=== PATIENT | female | born 1945 | race Caucasian/White ===

== ENCOUNTER 2021-02-23 12:50 | Inpatient (IN) | payer MEDICARE, OTHER ==
[~2021-02-23] VITALS: Ht 152.4 cm; Wt 90.9 kg
[2021-02-23 13:58] LABS: BASOPHILS % (AUTO) 0.3 % (0-1); EOSINOPHILS % (AUTO) 0.3 % (0-6); HEMATOCRIT 41.1 % (35.0-45.0); HEMOGLOBIN 13.7 g/dl (12.0-16.0); LYMPHOCYTES # (AUTO) 0.4 X10'3 (1.1-4.8); LYMPHOCYTES % (AUTO) 8.4 % (21-51); MEAN CORPUSCULAR HEMOGLOBIN 30.3 PG (27.0-31.0); MEAN CORPUSCULAR HGB CONC 33.2 g/dL (33.0-36.5); MEAN CORPUSCULAR VOLUME 91.3 FL (78-98); MEAN PLATELET VOLUME 8.1 FL (7.4-10.4); MONOCYTES # (AUTO) 0.4 X10'3 (0-0.9); MONOCYTES % (AUTO) 6.6 % (2-12); NEUTROPHILS # (AUTO) 4.5 X10'3 (1.8-7.7); NEUTROPHILS % (AUTO) 84.4 % (42-75); PLATELET COUNT 252 X10'3 (140-440); RED BLOOD COUNT 4.51 X10'6 (4.20-5.60); RED CELL DISTRIBUTION WIDTH 13.4 % (11.5-14.5); WHITE BLOOD COUNT 5.3 X10'3 (4.5-11.0)
[2021-02-23 14:10] LABS: CLARITY,URINE SLIGHTLY CLOUDY (Clear); COLOR,URINE YELLOW (Yellow); GLUCOSE, URINE NEGATIVE (Neg); KETONES,URINE 15 mg/dl (Neg); LEUKOCYTE ESTERASE ,URINE NEGATIVE (Neg); NITRITES, URINE NEGATIVE (Neg); OCCULT BLOOD,URINE TRACE-LYSED (Neg); PH,URINE 6.5 (4.8-8.0); PROTEIN,URINE TRACE mg/dl (Neg); UA COLLECTION TYPE CLN CATCH MIDSTREAM; UROBILINOGEN,URINE 0.2 E.U/dL (0.2-1.0)
[2021-02-23 14:14] LABS: ALANINE AMINOTRANSFERASE 21 U/L (12-78); ALBUMIN 2.7 G/DL (3.4-5.0); ALBUMIN/GLOBULIN RATIO 0.7 (1.1-1.5); ALKALINE PHOSPHATASE 128 IU/L (46-116); ANION GAP 9 (8-16); ASPARTATE AMINO TRANSFERASE 60 U/L (10-37); BILIRUBIN,TOTAL 0.5 MG/DL (0.1-1.0); BLOOD UREA NITROGEN 11 MG/DL (7-18); BUN/CREATININE RATIO 12.6 (6.6-38.0); C-REACTIVE PROTEIN 8.99 MG/DL (0.0-0.5); CALCIUM 8.8 MG/DL (8.5-10.1); CHLORIDE 98 MMOL/L (99-107); CREATININE 0.87 MG/DL (0.40-0.90); GLUCOSE 136 MG/DL (70-104); POTASSIUM 3.5 MMOL/L (3.5-5.1); SODIUM 136 MMOL/L (135-145); TOTAL CARBON DIOXIDE 29.1 MMOL/L (24-32); TOTAL PROTEIN 6.8 G/DL (6.4-8.2); eGFR 63 ML/MIN
[2021-02-23 14:36] LABS: BACTERIA,URINE 1+ /HPF (Neg); RBC,URINE 0-2 /HPF (0-2); SQUAMOUS EPITHELIAL CELL,UR MODERATE /LPF (FEW); TRANSITIONAL EPI CELLS,URINE FEW /HPF
[2021-02-23 14:37] LABS: WBC,URINE 0-4 /HPF (0-4)
[2021-02-23] MEDS ORDERED: REMDESIVIR INJ 200 MG in normal saline 100ml IV soln 60 ML IV ONE (15:10)
[2021-02-23] MEDS ORDERED: CLOT15CR73 TP (15:15)
[2021-02-23] MEDS ORDERED: DIPH25CA52 PO (15:15)
[2021-02-23] MEDS ORDERED: METO100T14 PO (15:15)
[2021-02-23] MEDS ORDERED: mag hydrox/Alum hydrox/simeth 30ml oral suspension PO PRN (15:15)
[2021-02-23] MEDS ORDERED: ASPI-611 PO (15:15)
[2021-02-23] MEDS ORDERED: DOCU100C40 PO (15:15)
[2021-02-23] MEDS ORDERED: magnesium hydroxide 30ml (MOM) UD suspension PO PRN (15:15)
[2021-02-23] MEDS ORDERED: acetaminophen 325mg tablet PO PRN (15:15)
[2021-02-23] MEDS ORDERED: AMLO1CAP2 PO (15:15)
[2021-02-23] MEDS ORDERED: INDA1.255 PO (15:15)
[2021-02-23] MEDS ORDERED: HYDR-3972 PO (15:15)
[2021-02-23] MEDS ORDERED: morphine 2 MG/ML inj. syringe IV PRN (15:15)
[2021-02-23] MEDS ORDERED: CHOL500050 PO (15:15)
[2021-02-23] MEDS ORDERED: LEVO75TA7 PO (15:15)
[2021-02-23] MEDS ORDERED: ondansetron/PF 4mg/2ml inj IV PRN (15:15)
[2021-02-23] MEDS ORDERED: POLY119P2 PO (15:18)
[2021-02-23] MEDS ORDERED: GABA300C PO (15:18)
[2021-02-23] MEDS ORDERED: CELE-85 PO (15:18)
[2021-02-23 15:55] LABS: D-DIMER 3.92 MG/L FEU (0-0.50)
[2021-02-23] MEDS ORDERED: HYDROcodone/acetaminophen 5mg/325mg tablet PO PRN (17:35)
[2021-02-23] MEDS: normal saline 1000ml 1,000 ML IV SCH ×2 (18:21→22:51)
[2021-02-23] MEDS ORDERED: dexamethasone inj 6 MG in normal saline 50ml IV soln 50 ML IV SCH (20:00)
[2021-02-23] MEDS: docusate sod 100mg capsule PO SCH ×2 (20:00→21:00)
[2021-02-23] MEDS: enoxaparin 40mg/0.4ml syringe SUBCUT SCH (21:47)
[2021-02-23] MEDS: diphenhydrAMINE 25mg capsule PO SCH (21:48)
[2021-02-23] MEDS: metoprolol tartrate 50mg tablet PO SCH (21:48)
[2021-02-23] MEDS: gabapentin 300mg capsule PO SCH (21:48)
[2021-02-23 22:22] VITALS: BP 141/71
[2021-02-23] MEDS: dexamethasone inj 6 MG in normal saline 50ml IV soln 50 ML IV SCH (22:48)
[2021-02-24 02:00] VITALS: BP 137/77
[2021-02-24 06:00] VITALS: BP 141/78
--- NOTE | 2021-02-24 06:27 | NUR ---
Problems reprioritized. Patient report given, questions answered & plan of care reviewed with Salud ALEJO.
--- NOTE | 2021-02-24 06:50 | NUR ---
Patient in room ORTHO 4022. I have received report from Marcie Rome RN and had the opportunity to ask questions and assume patient care.
[2021-02-24] MEDS ORDERED: HYDROchlorothiazide 25mg tablet PO SCH (08:00)
[2021-02-24] MEDS: docusate sod 100mg capsule PO SCH ×3 (08:00→20:06)
[2021-02-24] MEDS ORDERED: polyethylene glycol 3350 17gm powd pack PO SCH (08:00)
[2021-02-24 08:39] LABS: BASOPHILS % (AUTO) 0.2 % (0-1); EOSINOPHILS % (AUTO) 0 % (0-6); HEMATOCRIT 44.3 % (35.0-45.0); HEMOGLOBIN 14.6 g/dl (12.0-16.0); LYMPHOCYTES # (AUTO) 0.4 X10'3 (1.1-4.8); MEAN CORPUSCULAR HEMOGLOBIN 30.3 PG (27.0-31.0); MEAN CORPUSCULAR HGB CONC 32.9 g/dL (33.0-36.5); MEAN CORPUSCULAR VOLUME 92.1 FL (78-98); MEAN PLATELET VOLUME 8.3 FL (7.4-10.4); MONOCYTES # (AUTO) 0.3 X10'3 (0-0.9); MONOCYTES % (AUTO) 7.8 % (2-12); NEUTROPHILS # (AUTO) 2.6 X10'3 (1.8-7.7); PLATELET COUNT 301 X10'3 (140-440); RED BLOOD COUNT 4.82 X10'6 (4.20-5.60); RED CELL DISTRIBUTION WIDTH 13.5 % (11.5-14.5); WHITE BLOOD COUNT 3.3 X10'3 (4.5-11.0)
[2021-02-24] MEDS: celeCOXIB 100mg capsule PO SCH (08:56)
[2021-02-24] MEDS: aspirin 81mg, enteric-coated 1 TAB TABLET.DR PO SCH (08:57)
[2021-02-24] MEDS: amLODIPine 5mg tablet PO SCH (08:57)
[2021-02-24] MEDS: gabapentin 300mg capsule PO SCH ×2 (08:57→20:08)
[2021-02-24] MEDS: cholecalciferol (vitamin D3) 1,000 unit (25mcg) tablet PO SCH (08:58)
[2021-02-24] MEDS: levoTHYROXINE 75mcg tablet PO SCH (08:58)
[2021-02-24] MEDS: lisinopril 20mg tablet PO SCH (08:59)
[2021-02-24] MEDS: dexamethasone inj 6 MG in normal saline 50ml IV soln 50 ML IV SCH ×2 (09:01→20:09)
[2021-02-24 09:04] LABS: ALBUMIN 2.8 G/DL (3.4-5.0); ANION GAP 14 (8-16); BLOOD UREA NITROGEN 9 MG/DL (7-18); BUN/CREATININE RATIO 11.7 (6.6-38.0); CALCIUM 8.4 MG/DL (8.5-10.1); CHLORIDE 99 MMOL/L (99-107); CREATININE 0.77 MG/DL (0.40-0.90); GLUCOSE 163 MG/DL (70-104); POTASSIUM 3.2 MMOL/L (3.5-5.1); SODIUM 140 MMOL/L (135-145); TOTAL CARBON DIOXIDE 27.3 MMOL/L (24-32); eGFR 73 ML/MIN
[2021-02-24] MEDS: metoprolol tartrate 50mg tablet PO SCH ×2 (09:06→20:07)
[2021-02-24] MEDS: enoxaparin 40mg/0.4ml syringe SUBCUT SCH ×2 (09:07→20:08)
[2021-02-24] MEDS: clotrimazole/betamethasone diproprion. cream 15gm TP SCH (09:09)
[2021-02-24] MEDS: REMDESIVIR INJ 100 MG in normal saline 100ml IV soln 80 ML IV SCH (09:53)
[2021-02-24 10:00] VITALS: BP 135/78
[2021-02-24] MEDS ORDERED: iohexol 350MG/ML 100ml bottle IV ONE (11:13)
--- NOTE | 2021-02-24 14:47 | NUR ---
Phone call with pharmacist re: "severe reaction between Benadryl and Potassium" when entering K+/Mg++ replacement protocol. OK [facility] Will continue to monitor
[2021-02-24] MEDS ORDERED: magnesium Cl slow-release 64mg tablet PO PRN (14:50)
[2021-02-24] MEDS ORDERED: potassium Cl 40MEQ/1/2NS 520ml 520 ML IV PRN (14:50)
[2021-02-24] MEDS ORDERED: magnesium 4gm in 100ml NS 100 ML IV PRN (14:50)
[2021-02-24] MEDS ORDERED: potassium Cl 20 mEq SR tablet PO PRN (14:50)
[2021-02-24] MEDS: potassium Cl 20 mEq SR tablet PO PRN ×2 (15:15→20:08)
--- NOTE | 2021-02-24 18:38 | NUR ---
Problems reprioritized. Patient report given, questions answered & plan of care reviewed with Marcie Rome RN.
[2021-02-24] MEDS: K and/or MAG REPLACEMENT MC SCH (20:04)
[2021-02-24] MEDS: polyethylene glycol 3350 17gm powd pack PO SCH (20:09)
[2021-02-24] MEDS: diphenhydrAMINE 25mg capsule PO SCH (20:12)
[2021-02-24 22:00] VITALS: BP 140/76
[2021-02-25 02:00] VITALS: BP 133/67
--- NOTE | 2021-02-25 06:23 | NUR ---
Problems reprioritized. Patient report given, questions answered & plan of care reviewed with Clarissa ALEJO.
[2021-02-25 06:51] VITALS: BP 147/88
[2021-02-25] MEDS: REMDESIVIR INJ 100 MG in normal saline 100ml IV soln 80 ML IV SCH (07:31)
[2021-02-25] MEDS: lisinopril 20mg tablet PO SCH (07:32)
[2021-02-25] MEDS: enoxaparin 40mg/0.4ml syringe SUBCUT SCH (07:32)
[2021-02-25] MEDS: dexamethasone inj 6 MG in normal saline 50ml IV soln 50 ML IV SCH ×2 (07:32→20:47)
[2021-02-25] MEDS: aspirin 81mg, enteric-coated 1 TAB TABLET.DR PO SCH (07:33)
[2021-02-25] MEDS: metoprolol tartrate 50mg tablet PO SCH ×2 (07:33→20:28)
[2021-02-25] MEDS: levoTHYROXINE 75mcg tablet PO SCH (07:33)
[2021-02-25] MEDS: gabapentin 300mg capsule PO SCH ×2 (07:33→20:28)
[2021-02-25] MEDS: cholecalciferol (vitamin D3) 1,000 unit (25mcg) tablet PO SCH (07:33)
[2021-02-25] MEDS: amLODIPine 5mg tablet PO SCH (07:33)
[2021-02-25] MEDS: celeCOXIB 100mg capsule PO SCH (07:33)
[2021-02-25] MEDS: K and/or MAG REPLACEMENT MC SCH ×2 (08:00→20:19)
[2021-02-25] MEDS: clotrimazole/betamethasone diproprion. cream 15gm TP SCH (08:06)
[2021-02-25 08:57] LABS: BASOPHILS % (AUTO) 0 % (0-1); EOSINOPHILS % (AUTO) 0 % (0-6); HEMATOCRIT 40.7 % (35.0-45.0); LYMPHOCYTES # (AUTO) 0.8 X10'3 (1.1-4.8); LYMPHOCYTES % (AUTO) 9.4 % (21-51); MEAN CORPUSCULAR HEMOGLOBIN 30.8 PG (27.0-31.0); MEAN CORPUSCULAR HGB CONC 34.4 g/dL (33.0-36.5); MEAN CORPUSCULAR VOLUME 89.5 FL (78-98); MEAN PLATELET VOLUME 8.2 FL (7.4-10.4); MONOCYTES # (AUTO) 0.7 X10'3 (0-0.9); MONOCYTES % (AUTO) 8.3 % (2-12); NEUTROPHILS # (AUTO) 6.7 X10'3 (1.8-7.7); NEUTROPHILS % (AUTO) 82.3 % (42-75); PLATELET COUNT 351 X10'3 (140-440); RED BLOOD COUNT 4.55 X10'6 (4.20-5.60); RED CELL DISTRIBUTION WIDTH 13.1 % (11.5-14.5); WHITE BLOOD COUNT 8.1 X10'3 (4.5-11.0)
[2021-02-25 09:15] LABS: ALBUMIN 2.9 G/DL (3.4-5.0); ANION GAP 6 (8-16); BLOOD UREA NITROGEN 13 MG/DL (7-18); BUN/CREATININE RATIO 15.9 (6.6-38.0); C-REACTIVE PROTEIN 4.03 MG/DL (0.0-0.5); CHLORIDE 100 MMOL/L (99-107); CREATININE 0.82 MG/DL (0.40-0.90); GLUCOSE 205 MG/DL (70-104); POTASSIUM 3.1 MMOL/L (3.5-5.1); SODIUM 136 MMOL/L (135-145); TOTAL CARBON DIOXIDE 30.4 MMOL/L (24-32); eGFR 68 ML/MIN
[2021-02-25 09:29] LABS: D-DIMER 3.45 MG/L FEU (0-0.50)
[2021-02-25 09:47] VITALS: BP 125/72
[2021-02-25] MEDS: potassium Cl 20 mEq SR tablet PO PRN ×2 (16:10→20:29)
[2021-02-25 18:00] VITALS: BP 129/66
[2021-02-25] MEDS: diphenhydrAMINE 25mg capsule PO SCH (20:29)
[2021-02-25] MEDS: polyethylene glycol 3350 17gm powd pack PO SCH (20:29)
[2021-02-25] MEDS: docusate sod 100mg capsule PO SCH (20:29)
[2021-02-25] MEDS: enoxaparin 60mg/0.6ml syringe SUBCUT SCH (20:47)
[2021-02-25] MEDS ORDERED: polyethylene glycol 3350 17gm powd pack PO SCH (21:00)
[2021-02-25 22:00] VITALS: BP 121/68
[2021-02-26 02:00] VITALS: BP 131/72
[2021-02-26 05:30] VITALS: BP 141/84
--- NOTE | 2021-02-26 07:00 | NUR ---
Problems reprioritized. Patient report given, questions answered & plan of care reviewed with Mansi RN.
--- NOTE | 2021-02-26 07:00 | NUR ---
Patient in room ORTHO 4022. I have received report from MELO Jack and had the opportunity to ask questions and assume patient care.
[2021-02-26 08:00] LABS: BASOPHILS % (AUTO) 0.1 % (0-1); EOSINOPHILS % (AUTO) 0.1 % (0-6); HEMATOCRIT 40.3 % (35.0-45.0); HEMOGLOBIN 13.4 g/dl (12.0-16.0); LYMPHOCYTES # (AUTO) 0.7 X10'3 (1.1-4.8); LYMPHOCYTES % (AUTO) 7.5 % (21-51); MEAN CORPUSCULAR HEMOGLOBIN 30.1 PG (27.0-31.0); MEAN CORPUSCULAR HGB CONC 33.4 g/dL (33.0-36.5); MEAN CORPUSCULAR VOLUME 90.2 FL (78-98); MEAN PLATELET VOLUME 8.3 FL (7.4-10.4); MONOCYTES # (AUTO) 0.6 X10'3 (0-0.9); MONOCYTES % (AUTO) 7.3 % (2-12); NEUTROPHILS # (AUTO) 7.4 X10'3 (1.8-7.7); PLATELET COUNT 373 X10'3 (140-440); RED BLOOD COUNT 4.46 X10'6 (4.20-5.60); RED CELL DISTRIBUTION WIDTH 13.6 % (11.5-14.5); WHITE BLOOD COUNT 8.7 X10'3 (4.5-11.0)
[2021-02-26 08:38] LABS: ALBUMIN 2.9 G/DL (3.4-5.0); ANION GAP 11 (8-16); BLOOD UREA NITROGEN 18 MG/DL (7-18); BUN/CREATININE RATIO 22.8 (6.6-38.0); C-REACTIVE PROTEIN 2.45 MG/DL (0.0-0.5); CALCIUM 8.7 MG/DL (8.5-10.1); CHLORIDE 100 MMOL/L (99-107); CREATININE 0.79 MG/DL (0.40-0.90); GLUCOSE 207 MG/DL (70-104); POTASSIUM 3.9 MMOL/L (3.5-5.1); SODIUM 139 MMOL/L (135-145); TOTAL CARBON DIOXIDE 27.9 MMOL/L (24-32); eGFR 71 ML/MIN
[2021-02-26] MEDS: lisinopril 20mg tablet PO SCH (09:05)
[2021-02-26] MEDS: metoprolol tartrate 50mg tablet PO SCH ×2 (09:05→19:40)
[2021-02-26] MEDS: levoTHYROXINE 75mcg tablet PO SCH (09:05)
[2021-02-26] MEDS: gabapentin 300mg capsule PO SCH ×2 (09:05→19:41)
[2021-02-26] MEDS: enoxaparin 60mg/0.6ml syringe SUBCUT SCH ×2 (09:06→19:39)
[2021-02-26] MEDS: cholecalciferol (vitamin D3) 1,000 unit (25mcg) tablet PO SCH (09:09)
[2021-02-26] MEDS: amLODIPine 5mg tablet PO SCH (09:10)
[2021-02-26] MEDS: REMDESIVIR INJ 100 MG in normal saline 100ml IV soln 80 ML IV SCH (09:10)
[2021-02-26] MEDS: K and/or MAG REPLACEMENT MC SCH ×2 (09:10→19:11)
[2021-02-26] MEDS: aspirin 81mg, enteric-coated 1 TAB TABLET.DR PO SCH (09:10)
[2021-02-26] MEDS: celeCOXIB 100mg capsule PO SCH (09:10)
[2021-02-26] MEDS: dexamethasone inj 6 MG in normal saline 50ml IV soln 50 ML IV SCH ×2 (09:10→19:39)
[2021-02-26] MEDS: clotrimazole/betamethasone diproprion. cream 15gm TP SCH (09:11)
[2021-02-26 10:00] VITALS: BP 125/92
[2021-02-26] MEDS ORDERED: guaiFENesin/DM 10ml UD oral syrup PO PRN (10:55)
[2021-02-26 10:57] LABS: D-DIMER 2.83 MG/L FEU (0-0.50)
[2021-02-26 14:00] VITALS: BP 120/65
--- NOTE | 2021-02-26 14:06 | NUR ---
Initial: Pt admit for acute respiratory failure with hypoxia and bilat COVID PNA. Currently on a heart healthy diet and eating well with average 75% PO intake. LBM 02/25, receiving routine bowel care. No nutrition intervention implemented at this time. Will continue to follow and make recommendations as appropriate. Recommendations: 1) Advance to regular diet 2) Monitor need for ONS/additional protein 3) Routine bowel care 4) Scaled weight this admit; weekly scaled weights thereafter Addendum: 02/26/21 at [address] Amended: Links added.
[2021-02-26 18:00] VITALS: BP 125/74
--- NOTE | 2021-02-26 18:10 | NUR ---
Problems reprioritized. Patient report given, questions answered & plan of care reviewed with MELO Jack.
[2021-02-26] MEDS: polyethylene glycol 3350 17gm powd pack PO SCH (19:40)
[2021-02-26] MEDS: docusate sod 100mg capsule PO SCH (19:41)
[2021-02-26] MEDS: guaiFENesin 100mg/DM 10mg oral syrup 5 ML CUP PO PRN (19:41)
[2021-02-26] MEDS: diphenhydrAMINE 25mg capsule PO SCH (19:41)
[2021-02-26 22:00] VITALS: BP 136/94
[2021-02-27] MEDS: guaiFENesin 100mg/DM 10mg oral syrup 5 ML CUP PO PRN ×2 (05:26→09:39)
--- NOTE | 2021-02-27 06:21 | NUR ---
Problems reprioritized. Patient report given, questions answered & plan of care reviewed with Shane ALEJO.
[2021-02-27 07:41] VITALS: BP 124/75
[2021-02-27] MEDS: K and/or MAG REPLACEMENT MC SCH (08:00)
[2021-02-27 08:08] LABS: BASOPHILS % (AUTO) 0.3 % (0-1); EOSINOPHILS % (AUTO) 0 % (0-6); HEMATOCRIT 39.8 % (35.0-45.0); HEMOGLOBIN 13.3 g/dl (12.0-16.0); LYMPHOCYTES # (AUTO) 0.7 X10'3 (1.1-4.8); LYMPHOCYTES % (AUTO) 7.3 % (21-51); MEAN CORPUSCULAR HEMOGLOBIN 29.8 PG (27.0-31.0); MEAN CORPUSCULAR HGB CONC 33.3 g/dL (33.0-36.5); MEAN CORPUSCULAR VOLUME 89.3 FL (78-98); MEAN PLATELET VOLUME 7.9 FL (7.4-10.4); MONOCYTES # (AUTO) 0.9 X10'3 (0-0.9); MONOCYTES % (AUTO) 9.9 % (2-12); NEUTROPHILS # (AUTO) 7.3 X10'3 (1.8-7.7); NEUTROPHILS % (AUTO) 82.5 % (42-75); PLATELET COUNT 364 X10'3 (140-440); RED BLOOD COUNT 4.46 X10'6 (4.20-5.60); RED CELL DISTRIBUTION WIDTH 13.7 % (11.5-14.5); WHITE BLOOD COUNT 8.9 X10'3 (4.5-11.0)
[2021-02-27 08:29] LABS: ALBUMIN 2.8 G/DL (3.4-5.0); ANION GAP 8 (8-16); BLOOD UREA NITROGEN 18 MG/DL (7-18); BUN/CREATININE RATIO 23.7 (6.6-38.0); C-REACTIVE PROTEIN 1.45 MG/DL (0.0-0.5); CALCIUM 8.4 MG/DL (8.5-10.1); CHLORIDE 102 MMOL/L (99-107); CREATININE 0.76 MG/DL (0.40-0.90); GLUCOSE 211 MG/DL (70-104); POTASSIUM 3.9 MMOL/L (3.5-5.1); SODIUM 138 MMOL/L (135-145); TOTAL CARBON DIOXIDE 27.6 MMOL/L (24-32); eGFR 74 ML/MIN
[2021-02-27] MEDS: gabapentin 300mg capsule PO SCH (08:30)
[2021-02-27] MEDS: REMDESIVIR INJ 100 MG in normal saline 100ml IV soln 80 ML IV SCH (08:30)
[2021-02-27] MEDS: dexamethasone inj 6 MG in normal saline 50ml IV soln 50 ML IV SCH (08:30)
[2021-02-27] MEDS: celeCOXIB 100mg capsule PO SCH (08:31)
[2021-02-27] MEDS: cholecalciferol (vitamin D3) 1,000 unit (25mcg) tablet PO SCH (08:31)
[2021-02-27] MEDS: lisinopril 20mg tablet PO SCH (08:31)
[2021-02-27] MEDS: aspirin 81mg, enteric-coated 1 TAB TABLET.DR PO SCH (08:32)
[2021-02-27] MEDS: levoTHYROXINE 75mcg tablet PO SCH (08:32)
[2021-02-27] MEDS: amLODIPine 5mg tablet PO SCH (08:32)
[2021-02-27] MEDS: metoprolol tartrate 50mg tablet PO SCH (08:33)
[2021-02-27] MEDS: clotrimazole/betamethasone diproprion. cream 15gm TP SCH (08:34)
[2021-02-27] MEDS: enoxaparin 60mg/0.6ml syringe SUBCUT SCH (08:34)
--- NOTE | 2021-02-27 12:55 | NUR ---
O2 Sat at rest on room air:__89_% If below 89%: Recovery O2 Sat at rest on __2_LPM:___%:__92_% via___N/C (mask/nasal cannula, etc..) No further documentation is necessary. If O2 Sat did not drop below 89% on room air,ambulate patient on room air. O2 Sat while ambulating on room air:__86_% Recovery O2 Sat while ambulating on __3_LPM:__87_% No further documentation is necessary. If patient does not drop below 89% while ambulating, he/she does not qualify for home O2.
[2021-02-27 15:52] VITALS: BP 134/80
[2021-02-27] MEDS ORDERED: ASPI-611 PO (16:19)
[2021-02-27] MEDS ORDERED: DEXA2TAB PO (16:19)
== END 2021-02-27 18:10 | disposition home or self-care (01) | DRG 177 ==
LOC: ER 12:51 → ED HOLD 15:15 → ORTHO 4S 20:20
PROVIDERS: ADMIT Family Medicine; ATTEND Family Medicine
PROC: XW033E5 Introduction of Remdesivir Anti-infective into Peripheral Vein, Percutaneous Approach, New Technology Group 5 (ICD-10-PCS; principal; 2021-02-23)
PROC: 5A0945A Assistance with Respiratory Ventilation, 24-96 Consecutive Hours, High Flow/Velocity Cannula (ICD-10-PCS; 2021-02-23)
PROC: B32T1ZZ Computerized Tomography (CT Scan) of Left Pulmonary Artery using Low Osmolar Contrast (ICD-10-PCS; 2021-02-24)
PROC: B3201ZZ Computerized Tomography (CT Scan) of Thoracic Aorta using Low Osmolar Contrast (ICD-10-PCS; 2021-02-24)
PROC: B32S1ZZ Computerized Tomography (CT Scan) of Right Pulmonary Artery using Low Osmolar Contrast (ICD-10-PCS; 2021-02-24)
DX: U07.1 COVID-19 (principal); J96.01 Acute respiratory failure with hypoxia; J12.82 Pneumonia due to coronavirus disease 2019; I10 Essential (primary) hypertension; E03.9 Hypothyroidism, unspecified; G89.29 Other chronic pain; E66.9 Obesity, unspecified; E86.0 Dehydration; G62.9 Polyneuropathy, unspecified; M54.9 Dorsalgia, unspecified; R19.7 Diarrhea, unspecified; R79.82 Elevated C-reactive protein (CRP); Z79.899 Other long term (current) drug therapy; Z88.2 Allergy status to sulfonamides; Z68.39 Body mass index [BMI] 39.0-39.9, adult
CPT/HCPCS: 36415; 71045; 71275; 80048; 80053; 81001; 84145; 84443; 85025; 85379; 86140; 87081; 87635; 93970; 99285; C9803; G0378; J1100; J1650; J7030; Q0163; Q9967

== ENCOUNTER 2021-04-27 10:18 | Inpatient (IN) | payer MEDICARE, OTHER ==
[~2021-04-27] VITALS: Ht 165.1 cm; Wt 77.3 kg
[~2021-04-27 10:18] MED LIST: AMLO1CAP2 PO; ASPI-611 PO; CELE-85 PO; CHOL500050 PO; CLOT15CR73 TP; DEXA2TAB PO; DIPH25CA52 PO; DOCU100C40 PO; GABA300C PO; HYDR-3972 PO; INDA1.255 PO; LEVO75TA7 PO; METO100T14 PO; POLY119P2 PO; cefazolin/dext.iso 2gm/50ml 50 ML IV ONE
[2021-04-27 10:56] LABS: BASOPHILS % (AUTO) 0.2 % (0-1); EOSINOPHILS % (AUTO) 0.2 % (0-6); HEMATOCRIT 33.9 % (35.0-45.0); HEMOGLOBIN 10.8 g/dl (12.0-16.0); LYMPHOCYTES # (AUTO) 1.2 X10'3 (1.1-4.8); LYMPHOCYTES % (AUTO) 12.9 % (21-51); MEAN CORPUSCULAR HEMOGLOBIN 31.5 PG (27.0-31.0); MEAN CORPUSCULAR VOLUME 98.3 FL (78-98); MEAN PLATELET VOLUME 9.2 FL (7.4-10.4); MONOCYTES # (AUTO) 0.5 X10'3 (0-0.9); MONOCYTES % (AUTO) 5.5 % (2-12); NEUTROPHILS # (AUTO) 7.6 X10'3 (1.8-7.7); NEUTROPHILS % (AUTO) 81.2 % (42-75); PLATELET COUNT 254 X10'3 (140-440); RED BLOOD COUNT 3.44 X10'6 (4.20-5.60); RED CELL DISTRIBUTION WIDTH 20.5 % (11.5-14.5); WHITE BLOOD COUNT 9.4 X10'3 (4.5-11.0)
[2021-04-27] MEDS ORDERED: normal saline 1000ML IV soln IVB ONE (11:15)
[2021-04-27 11:19] LABS: CLARITY,URINE SLIGHTLY CLOUDY (Clear); COLOR,URINE YELLOW (Yellow); GLUCOSE, URINE 100 mg/dl (Neg); KETONES,URINE NEGATIVE (Neg); LEUKOCYTE ESTERASE ,URINE SMALL (Neg); NITRITES, URINE NEGATIVE (Neg); OCCULT BLOOD,URINE SMALL (Neg); PH,URINE 6.5 (4.8-8.0); PROTEIN,URINE 30 mg/dl (Neg); UROBILINOGEN,URINE 0.2 E.U/dL (0.2-1.0)
[2021-04-27 11:20] LABS: UA COLLECTION TYPE STRAIGHT CATH
[2021-04-27 11:28] LABS: ALBUMIN 2.5 G/DL (3.4-5.0); ALBUMIN/GLOBULIN RATIO 0.6 (1.1-1.5); ALKALINE PHOSPHATASE 103 IU/L (46-116); ANION GAP 10 (8-16); ASPARTATE AMINO TRANSFERASE 22 U/L (10-37); BILIRUBIN,TOTAL 0.5 MG/DL (0.1-1.0); BLOOD UREA NITROGEN 29 MG/DL (7-18); BUN/CREATININE RATIO 29.9 (6.6-38.0); CALCIUM 9.2 MG/DL (8.5-10.1); CHLORIDE 118 MMOL/L (99-107); CREATININE 0.97 MG/DL (0.40-0.90); GLUCOSE 210 MG/DL (70-104); TOTAL CARBON DIOXIDE 32.2 MMOL/L (24-32); TOTAL PROTEIN 6.7 G/DL (6.4-8.2); eGFR 56 ML/MIN
[2021-04-27 11:30] LABS: ALANINE AMINOTRANSFERASE 6 U/L (12-78)
[2021-04-27 11:32] LABS: TRANSITIONAL EPI CELLS,URINE FEW /HPF
[2021-04-27 11:33] LABS: BACTERIA,URINE 1+ /HPF (Neg); RBC,URINE 0-2 /HPF (0-2); SQUAMOUS EPITHELIAL CELL,UR MANY /LPF (FEW); WBC CLUMPS,URINE FEW /HPF (NEGATIVE)
[2021-04-27 11:33] LABS: POTASSIUM 2.5 MMOL/L (3.5-5.1); SODIUM 160 MMOL/L (135-145)
[2021-04-27 11:34] LABS: HYALINE CASTS 0-3 /LPF (NEGATIVE)
[2021-04-27] MEDS ORDERED: potassium Cl 20 mEq/100mL bag IV SCH (11:50)
[2021-04-27 12:06] LABS: ANISOCYTOSIS 3+; PLATELET ESTIMATE NORMAL
--- NOTE | 2021-04-27 12:30 | NUR ---
Patient's daughter, Abbie, given update. [phone]
[2021-04-27] MEDS ORDERED: diltiazem 5mg/ml 5ml inj. IV ONE ×2 (13:00→19:55)
[2021-04-27] MEDS ORDERED: acetaminophen 650mg rectal suppository RC ONE (13:00)
[2021-04-27] MEDS ORDERED: aspirin 81mg tab.chew PO ONE (13:15)
[2021-04-27] MEDS ORDERED: CefTRIAXone/D5W-Rocephin 1gm 50 ML IV ONE (13:15)
[2021-04-27] MEDS ORDERED: vancomycin/NS 1 GM ADD-VANTAGE 250 ML IV ONE (13:15)
--- NOTE | 2021-04-27 15:00 | NUR ---
Patient's daughter, Abbie, given update.
--- NOTE | 2021-04-27 17:16 | NUR ---
Voice mail message left for Abbie, patient's daughter, to assist in filling out MRI form.
--- NOTE | 2021-04-27 17:50 | NUR ---
TO MRI AT THIS TIME VIA [employer].
--- NOTE | 2021-04-27 18:33 | NUR ---
ASSUMED CARE OF PT. PT CURRENTLY IN MRI. UNABLE TO PHYSICALLY ASSESS PT UNTIL PT IS BROUGHT BACK TO ROOM 3.
[2021-04-27] MEDS ORDERED: GADOTERATE MEGLUMINE 7.5 MMOL/15 ML VIAL IV ONE (18:41)
--- NOTE | 2021-04-27 18:44 | NUR ---
PT BACK FROM MRI.
--- NOTE | 2021-04-27 19:00 | NUR ---
PT ARRIVED FROM [facility] WITH CENTRAL LINE IN PLACE.
--- NOTE | 2021-04-27 19:00 | NUR ---
Family at bedside.
--- NOTE | 2021-04-27 19:07 | NUR ---
CALLED DR BRAXTON CONCERNING PT'S HEART RATE. DR BRAXTON SAID HE WILL COME ASSESS PT.
--- NOTE | 2021-04-27 19:41 | NUR ---
DR DELGADO AWARE OF PT'S HEART RATE. PT NOT ADMITTED YET. DR DELGADO REQUESTED EKG AND HE WILL ALSO ASSESS PT.
--- NOTE | 2021-04-27 19:45 | NUR ---
DR DELGADO ASSESSING PT AT BEDSIDE
--- NOTE | 2021-04-27 19:50 | NUR ---
RECIEVED VERBAL ORDER FROM DR DELGADO FOR 10 IVP OF CARDIZEM TO BE GIVEN NOW FOLLOWED BY A CARDIZEM DRIP RUNNING AT 5/HR. ORDER REPEATED BACK FOR ACCURACY.
--- NOTE | 2021-04-27 19:54 | NUR ---
MEDICATION ORDER PLACED
[2021-04-27] MEDS ORDERED: diltiazem-D5W 125mg/125ml 125 ML IV SCH (19:55)
--- NOTE | 2021-04-27 20:00 | NUR ---
PT'S DAUGHTER TOSIN CALLED, REPORTS PT IS ABLE TO EAT PUREED FOOD BUT MUST BE FED
--- NOTE | 2021-04-27 20:04 | NUR ---
CALLED PHARMACY. PHARMACY IS PREPARING SANYA HIGGINS
[2021-04-27] MEDS: diltiazem-NS 100mg/100ml 100 ML IV SCH (20:18)
[2021-04-27] MEDS ORDERED: metoprolol tartrate 1mg/ml inj IV ONE (21:00)
[2021-04-27] MEDS: metoprolol tartrate 1mg/ml inj IV SCH ×2 (21:30→22:33)
--- NOTE | 2021-04-27 22:11 | NUR ---
RECIEVED VERBAL ORDER FROM DR DELGADO TO INCREASE CARDIZEM DRIP RATE TO 10MG/HR. ORDER REPEATED BACK FOR ACCURACY.
--- NOTE | 2021-04-27 22:28 | NUR ---
PT'S DAUGHTER, TOSIN, CALLED FOR AN UPDATE. I TRANSFERRED CALL TO DR DELGADO.
[2021-04-28] MEDS ORDERED: cefazolin/dext.iso 2gm/50ml 50 ML IV ONE
--- NOTE | 2021-04-28 01:18 | NUR ---
SPOKE TO DR OCAMPO CONCERNING PT'S LABS. HE RECOMMENDS DRAWING ANOTHER CMP. CMP WILL BE ORDERED.
[2021-04-28] MEDS: metoprolol tartrate 1mg/ml inj IV SCH ×5 (01:38→20:25)
[2021-04-28 02:08] LABS: ALANINE AMINOTRANSFERASE 10 U/L (12-78); ALBUMIN 2.4 G/DL (3.4-5.0); ALBUMIN/GLOBULIN RATIO 0.6 (1.1-1.5); ALKALINE PHOSPHATASE 100 IU/L (46-116); ANION GAP 10 (8-16); ASPARTATE AMINO TRANSFERASE 18 U/L (10-37); BILIRUBIN,TOTAL 0.7 MG/DL (0.1-1.0); BLOOD UREA NITROGEN 30 MG/DL (7-18); BUN/CREATININE RATIO 37.5 (6.6-38.0); CHLORIDE 123 MMOL/L (99-107); GLUCOSE 193 MG/DL (70-104); TOTAL CARBON DIOXIDE 32.4 MMOL/L (24-32); TOTAL PROTEIN 6.3 G/DL (6.4-8.2); eGFR 70 ML/MIN
[2021-04-28 02:13] LABS: SODIUM 165 MMOL/L (135-145)
[2021-04-28 02:14] LABS: POTASSIUM 2.3 MMOL/L (3.5-5.1)
--- NOTE | 2021-04-28 02:15 | NUR ---
SPOKE TO DR OCAMPO CONCERNING PT'S NEW LAB RESULTS RECIEVED VERBAL ORDER FOR 2L FLUID BOLUS AND A REPEAT CMP AT 0400. ORDERS REPEATED BACK FOR ACCURACY. HE WILL ALSO REPLACE K AND PUT THOSE ORDERS IN .
[2021-04-28] MEDS ORDERED: magnesium 2GM in 50ml NS 50 ML IV ONE (02:20)
[2021-04-28] MEDS ORDERED: potassium Cl 20 mEq/100mL bag IV ONE (02:20)
[2021-04-28] MEDS ORDERED: normal saline 1000ml 1,000 ML IV ONE ×2 (02:30)
--- NOTE | 2021-04-28 03:25 | NUR ---
PT MOVED TO A HOSPITAL BED FOR MORE COMFORT. PT NODS HEAD YES AND STATES "YES" WHEN I ASKED HER IF SHE IS MORE COMFORTABLE. PT'S TEETH BRUSHED. PADDING PLACED ON PT'S SACRUM.
--- NOTE | 2021-04-28 05:42 | NUR ---
CONSULTED WITH DR OCAMPO CONCERNING PT'S HEART RATE AND CARDIZEM DRIP. HE GAVE A VERBAL ORDER TO DC CARDIZEM DRIP. HE WILL PUT IN NEW MEDICATION ORDERS IN SHORTLY.
[2021-04-28] MEDS ORDERED: metoprolol tartrate 1mg/ml inj IV ONE (05:45)
[2021-04-28 06:23] LABS: ALANINE AMINOTRANSFERASE 8 U/L (12-78); ALBUMIN 2.3 G/DL (3.4-5.0); ALBUMIN/GLOBULIN RATIO 0.6 (1.1-1.5); ALKALINE PHOSPHATASE 95 IU/L (46-116); ANION GAP 14 (8-16); ASPARTATE AMINO TRANSFERASE 22 U/L (10-37); BILIRUBIN,TOTAL 0.6 MG/DL (0.1-1.0); BLOOD UREA NITROGEN 27 MG/DL (7-18); BUN/CREATININE RATIO 31.8 (6.6-38.0); CALCIUM 8.7 MG/DL (8.5-10.1); CHLORIDE 123 MMOL/L (99-107); CREATININE 0.85 MG/DL (0.40-0.90); GLUCOSE 193 MG/DL (70-104); TOTAL CARBON DIOXIDE 29.2 MMOL/L (24-32); TOTAL PROTEIN 6.2 G/DL (6.4-8.2); eGFR 65 ML/MIN
[2021-04-28 06:25] LABS: POTASSIUM 2.6 MMOL/L (3.5-5.1); SODIUM 166 MMOL/L (135-145)
[2021-04-28] MEDS ORDERED: potassium Cl 20 mEq SR tablet PO ONE (07:20)
[2021-04-28] MEDS ORDERED: potassium Cl 40 mEq/0.45% sodium chloride IV soln 520ml IV ONE (07:20)
--- NOTE | 2021-04-28 07:51 | NUR ---
PROVIDER AWARE OF LEVAVATED NA AND LOW K+, NEW ORDER PENDING
[2021-04-28] MEDS: magnesium 2GM in 50ml NS 50 ML IV SCH ×2 (07:52→11:56)
[2021-04-28] MEDS ORDERED: ringers solution, lactated 1000ml IV soln IV ONE (08:00)
[2021-04-28] MEDS ORDERED: cefepime 1GM in D5W 50mL 50 ML IV ONE (08:00)
[2021-04-28] MEDS ORDERED: VANCOMYCIN 1,500MG inj. 1,500 MG in normal saline 500ml IV soln 500 ML IV SCH (08:00)
--- NOTE | 2021-04-28 10:59 | NUR ---
PT'S DAUGHTER AND ARE AT BEDSIDE. FAMILY TO DISCUSS WITH PT HER CURRENT WISHES ARE.
[2021-04-28] MEDS: potassium Cl 20 mEq/100mL bag IV SCH ×2 (11:30→11:33)
[2021-04-28] MEDS ORDERED: magnesium 2GM in 50ml NS 50 ML IV SCH (11:45)
[2021-04-28] MEDS ORDERED: adenosine 3mg/ml 2ml vial IV ONE (14:00)
[2021-04-28] MEDS ORDERED: diltiazem 5mg/ml 5ml inj. IV ONE ×2 (14:15→15:10)
[2021-04-28] MEDS: diltiazem-NS 100mg/100ml 100 ML IV SCH (14:28)
[2021-04-28] MEDS ORDERED: normal saline 1000ML IV soln IVB ONE (19:40)
[2021-04-28] MEDS ORDERED: morphine 4 MG/ML inj SYRINge IM ONE (19:45)
[2021-04-28] MEDS ORDERED: GABA600T13 PO (20:15)
[2021-04-28] MEDS ORDERED: ceFAZolin/D5W- 1GM premix 50 ML IV SCH (22:00)
[2021-04-28] MEDS ORDERED: cefepime 1GM in D5W 50mL 100 ML IV SCH (22:15)
[2021-04-28] MEDS ORDERED: cefepime 1GM in D5W 50mL 50 ML IV SCH (22:19)
[2021-04-28] MEDS: vancomycin/NS 1 GM ADD-VANTAGE 250 ML IV SCH (22:51)
[2021-04-28] MEDS: cefepime 1GM in D5W 50mL 50 ML IV SCH (23:00)
[2021-04-29] MEDS: dextrose 5%-water 1,000 ML IV SCH ×4 (00:11→20:52)
[2021-04-29 02:56] LABS: ALANINE AMINOTRANSFERASE 10 U/L (12-78); ALBUMIN 2.3 G/DL (3.4-5.0); ALBUMIN/GLOBULIN RATIO 0.6 (1.1-1.5); ALKALINE PHOSPHATASE 97 IU/L (46-116); ANION GAP 10 (8-16); ASPARTATE AMINO TRANSFERASE 23 U/L (10-37); BILIRUBIN,TOTAL 0.6 MG/DL (0.1-1.0); BLOOD UREA NITROGEN 27 MG/DL (7-18); BUN/CREATININE RATIO 33.8 (6.6-38.0); CALCIUM 8.7 MG/DL (8.5-10.1); CHLORIDE 124 MMOL/L (99-107); GLUCOSE 241 MG/DL (70-104); POTASSIUM 3.7 MMOL/L (3.5-5.1); TOTAL CARBON DIOXIDE 29.1 MMOL/L (24-32); TOTAL PROTEIN 5.9 G/DL (6.4-8.2); eGFR 70 ML/MIN
[2021-04-29 03:06] LABS: SODIUM 163 MMOL/L (135-145)
[2021-04-29] MEDS ORDERED: insulin regular, human 10 units/0.1 ml syringe SQ ONE (03:50)
[2021-04-29] MEDS ORDERED: enoxaparin 30mg/0.3ml syringe SUBCUT ONE (04:55)
[2021-04-29 07:37] LABS: ALBUMIN 2.3 G/DL (3.4-5.0); ANION GAP 7 (8-16); BLOOD UREA NITROGEN 24 MG/DL (7-18); CALCIUM 8.5 MG/DL (8.5-10.1); CHLORIDE 120 MMOL/L (99-107); GLUCOSE 281 MG/DL (70-104); POTASSIUM 3.2 MMOL/L (3.5-5.1); TOTAL CARBON DIOXIDE 29.9 MMOL/L (24-32); eGFR 70 ML/MIN
[2021-04-29 07:41] LABS: SODIUM 157 MMOL/L (135-145)
[2021-04-29] MEDS: cefepime 1GM in D5W 50mL 50 ML IV SCH ×3 (07:47→23:00)
[2021-04-29 08:16] LABS: BASOPHILS % (AUTO) 0.3 % (0-1); EOSINOPHILS # (AUTO) 0.2 X10'3 (0-0.9); EOSINOPHILS % (AUTO) 2.5 % (0-6); HEMATOCRIT 32.6 % (35.0-45.0); HEMOGLOBIN 10.2 g/dl (12.0-16.0); LYMPHOCYTES # (AUTO) 0.9 X10'3 (1.1-4.8); LYMPHOCYTES % (AUTO) 9.7 % (21-51); MEAN CORPUSCULAR HEMOGLOBIN 31.6 PG (27.0-31.0); MEAN CORPUSCULAR HGB CONC 31.2 g/dL (33.0-36.5); MEAN CORPUSCULAR VOLUME 101.4 FL (78-98); MEAN PLATELET VOLUME 9.5 FL (7.4-10.4); MONOCYTES # (AUTO) 0.4 X10'3 (0-0.9); NEUTROPHILS % (AUTO) 83.5 % (42-75); PLATELET COUNT 137 X10'3 (140-440); RED BLOOD COUNT 3.21 X10'6 (4.20-5.60); WHITE BLOOD COUNT 9.5 X10'3 (4.5-11.0)
[2021-04-29 09:37] LABS: NUCLEATED RED BLOOD CELLS 2 /100WBC (0-0); TOTAL CELLS COUNTED 100
[2021-04-29 09:38] LABS: ANISOCYTOSIS 3+; PLATELET ESTIMATE INCREASED; POLYCHROMASIA FEW
[2021-04-29 09:41] LABS: SCHISTOCYTES FEW; STOMATOCYTES 1+
[2021-04-29] MEDS: vancomycin/NS 1 GM ADD-VANTAGE 250 ML IV SCH (10:00)
[2021-04-29 11:52] LABS: ALBUMIN 2.3 G/DL (3.4-5.0); ANION GAP 5 (8-16); BLOOD UREA NITROGEN 25 MG/DL (7-18); BUN/CREATININE RATIO 33.8 (6.6-38.0); CALCIUM 8.7 MG/DL (8.5-10.1); CHLORIDE 120 MMOL/L (99-107); CREATININE 0.74 MG/DL (0.40-0.90); GLUCOSE 213 MG/DL (70-104); TOTAL CARBON DIOXIDE 31.5 MMOL/L (24-32); eGFR 76 ML/MIN
[2021-04-29 12:03] LABS: POTASSIUM 3.6 MMOL/L (3.5-5.1); SODIUM 156 MMOL/L (135-145)
[2021-04-29] MEDS: metoprolol tartrate 1mg/ml inj IV SCH ×3 (13:14→21:07)
--- NOTE | 2021-04-29 13:47 | NUR ---
DR. LLANOS AT BEDSIDE FOR ADMIT EVAL.
[2021-04-29 15:32] LABS: ALBUMIN 2.3 G/DL (3.4-5.0); ANION GAP 9 (8-16); BLOOD UREA NITROGEN 24 MG/DL (7-18); BUN/CREATININE RATIO 29.6 (6.6-38.0); CALCIUM 8.6 MG/DL (8.5-10.1); CREATININE 0.81 MG/DL (0.40-0.90); GLUCOSE 216 MG/DL (70-104); TOTAL CARBON DIOXIDE 29.7 MMOL/L (24-32); eGFR 69 ML/MIN
[2021-04-29 15:37] LABS: POTASSIUM 3.6 MMOL/L (3.5-5.1); SODIUM 161 MMOL/L (135-145)
[2021-04-29 15:38] LABS: CHLORIDE 122 MMOL/L (99-107)
--- NOTE | 2021-04-29 16:30 | NUR ---
IR AT BEDSIDE TO TRANSPORT PT TO PROCEDURE FOR SPINAL ABSCESS DRAINAGE.
[2021-04-29 16:34] VITALS: BP 74/31
[2021-04-29 16:35] VITALS: BP 62/29
[2021-04-29 16:45] VITALS: BP 116/94
[2021-04-29 16:55] VITALS: BP 131/63
[2021-04-29 17:00] VITALS: BP 119/80
--- NOTE | 2021-04-29 18:23 | NUR ---
assumed care at 1823.
[2021-04-29 18:42] LABS: ALBUMIN 2.2 G/DL (3.4-5.0); ANION GAP 9 (8-16); BLOOD UREA NITROGEN 23 MG/DL (7-18); BUN/CREATININE RATIO 30.7 (6.6-38.0); CALCIUM 8.6 MG/DL (8.5-10.1); CREATININE 0.75 MG/DL (0.40-0.90); GLUCOSE 203 MG/DL (70-104); POTASSIUM 3.1 MMOL/L (3.5-5.1); TOTAL CARBON DIOXIDE 29.4 MMOL/L (24-32); eGFR 75 ML/MIN
[2021-04-29 18:47] LABS: CHLORIDE 123 MMOL/L (99-107); SODIUM 161 MMOL/L (135-145)
--- NOTE | 2021-04-29 19:10 | NUR ---
REPORTED CRITICAL LAB VALUES TO DR MONTAÑO.
--- NOTE | 2021-04-29 19:12 | NUR ---
family to bedside. family attempted to give patient water and the patient is coughing. this RNand [employer] boosted patient up in bed. oxygen sat94 but HR up to 160. Will CTM and administer medicaation per MD order.
[2021-04-29] MEDS ORDERED: metoprolol tartrate 1mg/ml inj IV SCH (19:25)
[2021-04-29] MEDS ORDERED: potassium Cl 20 mEq SR tablet PO STA (19:47)
[2021-04-29] MEDS ORDERED: lactobacillus rhamnosus 10,000 MMU CELLS/CAPSULE PO SCH (20:00)
[2021-04-29] MEDS: potassium Cl 10 mEq/100mL bag IV SCH ×2 (20:02→21:24)
[2021-04-29] MEDS ORDERED: metoprolol tartrate 1mg/ml inj IV ONE (20:50)
--- NOTE | 2021-04-29 20:59 | NUR ---
discused patient condition and medication orders with dr. Conley. When this RN came onto shift there were no infusions going. This RN obtained order to resume D5W. Dr. Conley confirmed DC of Diltiazem gtt due to ineffectiveness. New order obtained for additional metoprolo IV dose for afib rvr rate top 136-147. Will CTM patient. Emptied hyde catheter of 800 ML urine.
[2021-04-29 22:52] LABS: ALBUMIN 2.1 G/DL (3.4-5.0); ANION GAP 10 (8-16); BLOOD UREA NITROGEN 24 MG/DL (7-18); BUN/CREATININE RATIO 30.8 (6.6-38.0); CALCIUM 8.6 MG/DL (8.5-10.1); CHLORIDE 122 MMOL/L (99-107); CREATININE 0.78 MG/DL (0.40-0.90); GLUCOSE 249 MG/DL (70-104); POTASSIUM 3.6 MMOL/L (3.5-5.1); eGFR 72 ML/MIN
--- NOTE | 2021-04-29 23:03 | NUR ---
Accepting physician at [facility] in is Dr. Cardoso who can be contacted at [phone]. When nurse is ready to call and give report, contact number is [phone]
[2021-04-29 23:04] LABS: SODIUM 159 MMOL/L (135-145)
--- NOTE | 2021-04-29 23:11 | NUR ---
recieved critical lab value sodium 159. discussed with Dr. lomax and SOL to continue D5W at 100h
--- NOTE | 2021-04-29 23:33 | NUR ---
Spoke with Licensed Prosthetist/Orthotist at [facility] in who states at 0800 on 04/30/21 the physician in our ER needs to call their ER physician (see number in note above). Once this is done, then the nurse needs to call and give report as well. Patient has been assigned to room number 610.
[2021-04-30] MEDS: vancomycin/NS 1 GM ADD-VANTAGE 250 ML IV SCH (00:15)
[2021-04-30] MEDS ORDERED: pantoprazole IV 40 MG in normal saline 100ml IV soln 100 ML IV STA (00:30)
[2021-04-30] MEDS ORDERED: pantoprazole IV 40 MG in dextrose 5%-water 100 ML IV STA (00:32)
--- NOTE | 2021-04-30 00:34 | NUR ---
recruited Dr. Phelps to the bedside as the patient appears more unwell. Patient HR back to high 140's afib RVR. this RN has administered 15mg metoprolol IVP since assuming care. After resumption of d5w the patients hypernatremia has begun to fall as well. Patient responds to voice and is able to grasp bilateral hands and wiggle toes bilateral upon command but is non verbal and does not look to the side when instructed. MD assessed the patient at the bedside and reviewed labs. CT ordered and this RN anticipating IV protonix gtt. Will CTM patient closely.
--- NOTE | 2021-04-30 00:44 | NUR ---
patient to CT
[2021-04-30] MEDS ORDERED: levetiracetam inj 1,000 MG in normal saline 100ml IV soln 90 ML IV STA (01:13)
--- NOTE | 2021-04-30 01:14 | NUR ---
MD to bedside. VORB to stop D5W. done. started protonix gtt per MD order.
[2021-04-30] MEDS ORDERED: levetiracetam inj 1,000 MG in normal saline 100ml IV soln 100 ML IV STA (01:16)
[2021-04-30] MEDS: dextrose 5%-water 1,000 ML IV SCH (01:18)
--- NOTE | 2021-04-30 01:57 | NUR ---
neuro consult completed at the bedside. patient is asleep still in afib rvr 134. awaiting keppra to arrive from the pharmacy.
--- NOTE | 2021-04-30 02:38 | NUR ---
MD at the BS again at this RN's request. VORB to bolus 500mL NS. Order for 5mg metoprolol IVP. Patient is pale and afib RVR back up to 150-160's. Will CTM monitor and execute MD orders
--- NOTE | 2021-04-30 02:54 | NUR ---
verbal order to stop all fluids including keppra after consulting with nephrology. Addendum: 04/30/21 at 0257 by GINA MD soto states no fluids but keep keppra infusing and add another gram of cefepime. consulted with neurology as well. patient appears to be more alert at this time scrathcing her forehead with RUE. Will CTBarrington
[2021-04-30] MEDS ORDERED: metoprolol tartrate 1mg/ml inj IV ONE ×2 (02:55→05:15)
--- NOTE | 2021-04-30 03:05 | NUR ---
after consult MD states cefepime should be 1g q 8 hours as ordered. Keppra infusing well. IVP metoprolol per MD order
[2021-04-30 03:12] LABS: ANION GAP 10 (8-16); BLOOD UREA NITROGEN 24 MG/DL (7-18); BUN/CREATININE RATIO 28.2 (6.6-38.0); CALCIUM 8.5 MG/DL (8.5-10.1); CHLORIDE 120 MMOL/L (99-107); CREATININE 0.85 MG/DL (0.40-0.90); GLUCOSE 294 MG/DL (70-104); POTASSIUM 3.5 MMOL/L (3.5-5.1); TOTAL CARBON DIOXIDE 26.3 MMOL/L (24-32); eGFR 65 ML/MIN
[2021-04-30 03:19] LABS: SODIUM 156 MMOL/L (135-145)
--- NOTE | 2021-04-30 05:27 | NUR ---
patient asleep supine with reg RR, zero signs of distress or pain. See MAR.n Will CTM
--- NOTE | 2021-04-30 06:02 | NUR ---
patient changed into new gown, linens changed, UOP 800 + 450ml this shift. patient appears more comfortable. Evidence of effective pharmacological intervention HR 122
--- NOTE | 2021-04-30 07:02 | NUR ---
THIS RN INFORMED PT BEING PLACED ON COMFORT CARE
[2021-04-30] MEDS ORDERED: cefepime 1GM/NS ADD-VANTAGE 100 ML IV SCH (08:00)
[2021-04-30] MEDS ORDERED: HYDROmorphone inj. 0.5 MG/0.5 ML DISP.SYRIN IV PRN (08:10)
[2021-04-30] MEDS ORDERED: ondansetron/PF 4mg/2ml inj IV PRN (08:10)
[2021-04-30] MEDS ORDERED: magnesium hydroxide 30ml (MOM) UD suspension PO PRN (08:10)
[2021-04-30] MEDS ORDERED: LORazepam 2 mg/ml vial IV PRN (08:10)
[2021-04-30] MEDS ORDERED: mag hydrox/Alum hydrox/simeth 30ml oral suspension PO PRN (08:10)
[2021-04-30] MEDS ORDERED: acetaminophen 325mg tablet PO PRN (08:10)
[2021-04-30] MEDS ORDERED: HYDROmorphone/PF 0.2 MG/ML SYRINGE IV PRN (08:10)
[2021-04-30] MEDS ORDERED: VANCOMYCIN LEVEL IV ONE (09:30)
[2021-04-30 09:43] LABS: ALBUMIN 1.9 G/DL (3.4-5.0); ANION GAP 10 (8-16); BLOOD UREA NITROGEN 25 MG/DL (7-18); BUN/CREATININE RATIO 29.4 (6.6-38.0); CALCIUM 8.6 MG/DL (8.5-10.1); CHLORIDE 120 MMOL/L (99-107); CREATININE 0.85 MG/DL (0.40-0.90); GLUCOSE 281 MG/DL (70-104); SODIUM 154 MMOL/L (135-145); TOTAL CARBON DIOXIDE 23.8 MMOL/L (24-32); eGFR 65 ML/MIN
[2021-04-30 09:47] LABS: POTASSIUM 3.5 MMOL/L (3.5-5.1)
[2021-04-30 10:37] LABS: ANION GAP 8 (8-16); BLOOD UREA NITROGEN 24 MG/DL (7-18); BUN/CREATININE RATIO 28.6 (6.6-38.0); CALCIUM 8.6 MG/DL (8.5-10.1); CHLORIDE 121 MMOL/L (99-107); CREATININE 0.84 MG/DL (0.40-0.90); GLUCOSE 274 MG/DL (70-104); POTASSIUM 3.2 MMOL/L (3.5-5.1); TOTAL CARBON DIOXIDE 27.9 MMOL/L (24-32); eGFR 66 ML/MIN
[2021-04-30 10:41] LABS: SODIUM 157 MMOL/L (135-145); VANCOMYCIN,TROUGH 35.5 UG/ML (6.0-14.0)
--- NOTE | 2021-04-30 13:05 | NUR ---
Noted pt DNR with comfort care. Pt NPO at this time. Will continue to follow per LOS. Recommendations: 1) Bowel care per comfort care measures Addendum: 04/30/21 at [address] Amended: Links added.
[2021-04-30] MEDS ORDERED: morphine 10mg/0.5ml (conc. morphine) oral syringe PO PRN (16:10)
--- NOTE | 2021-04-30 18:37 | NUR ---
Problems reprioritized. Patient report given, questions answered & plan of care reviewed with MELO ZURITA.
[2021-04-30 19:05] VITALS: BP 135/97
[2021-04-30] MEDS ORDERED: docusate sod 100mg capsule PO SCH (20:00)
[2021-05-01] MEDS ORDERED: VANCOMYCIN LEVEL IV ONE (03:00)
--- NOTE | 2021-05-01 06:20 | NUR ---
Patient in room [facility] 344. I have received report from MELO De Anda and had the opportunity to ask questions and assume patient care.
[2021-05-01 06:30] VITALS: BP 144/87
--- NOTE | 2021-05-01 06:36 | NUR ---
Pt condition remains unchanged.Pt's daughter at bedside.Report given to Mansi RN
[2021-05-01] MEDS ORDERED: LORazepam 0.5 MG tablet PO PRN (13:25)
[2021-05-01] MEDS: morphine 10mg/0.5ml (conc. morphine) oral syringe PO PRN ×2 (13:25→13:54)
--- NOTE | 2021-05-01 18:10 | NUR ---
Problems reprioritized. Patient report given, questions answered & plan of care reviewed with MELO De Anda.
--- NOTE | 2021-05-02 06:10 | NUR ---
Patient in room [facility] 344. I have received report from Melanie De Anda had the opportunity to ask questions and assume patient care.
[2021-05-02] MEDS: morphine 10mg/0.5ml (conc. morphine) oral syringe PO PRN ×2 (10:40→14:01)
--- NOTE | 2021-05-02 11:27 | NUR ---
PAGER ID: [phone] MESSAGE: [phone] Dalila. Can we use her port? Can we get IV Ativan? Celi [phone]
[2021-05-02] MEDS ORDERED: morphine 10mg/0.5ml (conc. morphine) oral syringe PO SCH (12:00)
--- NOTE | 2021-05-02 16:09 | NUR ---
RN IS TO DOCUMENT YES TO ALL APPLICABLE AREAS Pronouncement of : 1. Time Physician Notified:1600 2. Date of :05/02/2021 3. Time of :1609 4. DNR/Withdraw life support documented:N/A 5. Monitor strip has been placed on chart:Y 6. Assessment process is of one-minute duration and includes following criteria: a) Patient is unresponsive to all stimuli: b) Pupils fixed and non-reactive: c) Auscultation of precordium reveals absence of heart tones: d) Auscultation of lungs reveals absence of breath sounds: e) Absence of blood pressure / all vital signs: f) QRS complexes are not present on monitor / EKG strip: g) Pacer spikes without capture:
--- NOTE | 2021-05-02 16:13 | NUR ---
PAGER ID: [phone] MESSAGE: [phone] Raleigh Conner passed at [phone]. Celi [phone]
--- NOTE | 2021-05-02 18:30 | NUR ---
Problems reprioritized. Patient report given, questions answered & plan of care reviewed with MELO Hutton.
--- NOTE | 2021-05-02 18:30 | NUR ---
Patient in room [facility] 344. I have received report from CONNOR and had the opportunity to ask questions and assume patient care. FAMILY STILL AT THE BEDSIDE WIT THE PATIENT.
--- NOTE | 2021-05-02 20:30 | NUR ---
FAMILY HAS LEFT THE BEDSIDE. FC AND TUNNEL CATH TO LEFT CHEST REMOVED. PT CLEANED AND WRAPPED IN BEDDING FOR TRANSPORT. 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 AWAITING MORTUARY LIQUOR DEPARTMENT MANAGER TO DC PT.
== END 2021-05-02 22:07 | DRG 871 ==
LOC: ER 10:19 → ED HOLD 04-30 08:13 → SUR 3N 04-30 12:15
PROVIDERS: ADMIT Family Medicine; ATTEND Family Medicine
DX: A41.9 Sepsis, unspecified organism (principal); G06.1 Intraspinal abscess and granuloma; K68.12 Psoas muscle abscess; E87.0 Hyperosmolality and hypernatremia; G91.9 Hydrocephalus, unspecified; L02.212 Cutaneous abscess of back [any part, except buttock and flank]; M46.26 Osteomyelitis of vertebra, lumbar region; D64.9 Anemia, unspecified; E03.9 Hypothyroidism, unspecified; E11.69 Type 2 diabetes mellitus with other specified complication; E87.6 Hypokalemia; Y83.8 Other surgical procedures as the cause of abnormal reaction of the patient, or of later complication, without mention of misadventure at the time of the procedure; G89.29 Other chronic pain; F03.90 Unspecified dementia, unspecified severity, without behavioral disturbance, psychotic disturbance, mood disturbance, and anxiety; Z66 Do not resuscitate; I10 Essential (primary) hypertension; I48.91 Unspecified atrial fibrillation; M46.46 Discitis, unspecified, lumbar region; Z51.5 Encounter for palliative care; Z86.16 Personal history of COVID-19; Z87.440 Personal history of urinary (tract) infections; Z88.2 Allergy status to sulfonamides; Y92.89 Other specified places as the place of occurrence of the external cause; Z79.899 Other long term (current) drug therapy
CPT/HCPCS: 36415; 70450; 71045; 72158; 80048; 80053; 80202; 81001; 82948; 83605; 83880; 84145; 84484; 85007; 85008; 85025; 87040; 87070; 87088; 87635; 93005; 96361; 96365; 96366; 96367; 96368; 96372; 96375; 96376; 99285; A9575; C9113; C9803; G0378; J0153; J0690; J0692; J0696; J1953; J2270; J3370; J3475; J3480; J3490; J7030; J7060; J7070; J7120